=== PATIENT | male | born 1955 | race Caucasian/White ===

== ENCOUNTER 2024-08-02 13:59 | Emergency (ER) | payer OTHER, MEDICARE ==
[2024-08-02] MEDS: Lidocaine 1% 5 ML VIAL INJECT ONE (14:40)
== END 2024-08-02 14:54 | disposition home or self-care (01) ==
LOC: LB.ED 13:59
DX: S60.452A Superficial foreign body of right middle finger, initial encounter (principal); Z91.030 Bee allergy status; W45.8XXA Other foreign body or object entering through skin, initial encounter
CPT/HCPCS: 99282; J2003; 99283